=== PATIENT | male | born 1990 | race Asian ===

== ENCOUNTER 2023-04-29 18:10 | Observation (INO) ==
[2023-04-29 18:29] LABS: ABS Basophils 0.1 10^3/uL (0.0-0.1); ABS Eosinophils 0.1 10^3/uL (0.0-0.5); ABS Lymphocytes 2.7 10^3/uL (1.0-4.8); ABS Monocytes 0.9 10^3/uL (0.0-1.1); ABS Neutrophils 8.8 10^3/uL (1.5-7.6); ABS Nucleated RBC 0.01 10^3/ul; Eosinophil % 0.6 %; Lymphocyte % 21.9 %; Mean Corpuscular Hemoglobin 29.9 pg (27-33); Mean Corpuscular Hgb Conc 34.2 g/dL (31-36); Mean Corpuscular Volume 87.5 fL (80-97); Mean Platelet Volume 7.8 fL (7.5-11.2); Nucleated Red Blood Cells % 0.1 /100 WBC (0.0-0.4); Platelet Count 251 10^3/uL (150-450); Red Blood Count 5.37 10^6/uL (4.06-5.63); Red Cell Distribution Width 13.8 % (12-17); White Blood Count 12.5 10^3/uL (3.6-10.2)
[2023-04-29 18:34] LABS: INR 1.08 (0.88-1.18)
[2023-04-29 18:45] LABS: Albumin 4.4 g/dL (3.2-5.2); Albumin/Globulin Ratio 1.7 (1-3); Calcium 9.3 mg/dL (8.6-10.3); Creatinine, Serum 1.29 mg/dL (0.67-1.17); Globulin 2.6 g/dL (2-4); Potassium 4.2 mmol/L (3.5-5.0); Total Bilirubin 0.4 mg/dL (0.2-1.0)
[2023-04-29 19:54] LABS: High Sensitivity Troponin 1 Hr 173 pg/mL (<20)
[2023-04-29] MEDS ORDERED: Heparin DRIP 25,000 UNITS BAG 25,000 UNITS/500 ML BAG IV SCH (21:00)
[2023-04-29] MEDS: Heparin DRIP 25,000 UNITS BAG 25,000 UNITS/500 ML BAG IV SCH (21:33)
[2023-04-29 21:35] LABS: HDL Cholesterol 39.7 mg/dL
[2023-04-29] MEDS ORDERED: Heparin 5000 UNITS/ML 1 mL VIAL IV SCH (22:00)
[2023-04-29] MEDS: Lactated Ringers 1000 ml BAG 1,000 ML IV SCH (23:11)
[2023-04-30 03:50] LABS: ABS Eosinophils 0.1 10^3/uL (0.0-0.5); ABS Lymphocytes 3.8 10^3/uL (1.0-4.8); ABS Monocytes 0.7 10^3/uL (0.0-1.1); ABS Neutrophils 4.2 10^3/uL (1.5-7.6); ABS Nucleated RBC 0.01 10^3/ul; Eosinophil % 1.3 %; Hematocrit 44.9 % (38-53); Hemoglobin 15.4 g/dL (13.2-16.3); Lymphocyte % 42.4 %; Mean Corpuscular Hemoglobin 29.7 pg (27-33); Mean Corpuscular Hgb Conc 34.3 g/dL (31-36); Mean Corpuscular Volume 86.5 fL (80-97); Mean Platelet Volume 7.8 fL (7.5-11.2); Nucleated Red Blood Cells % 0.2 /100 WBC (0.0-0.4); Platelet Count 235 10^3/uL (150-450); Red Blood Count 5.19 10^6/uL (4.06-5.63); Red Cell Distribution Width 13.8 % (12-17); White Blood Count 8.9 10^3/uL (3.6-10.2)
[2023-04-30 04:05] LABS: Calcium 9.1 mg/dL (8.6-10.3); Creatinine, Serum 1.22 mg/dL (0.67-1.17); Potassium 4.1 mmol/L (3.5-5.0); eGFR CKD-EPI 81.3 (>60)
[2023-04-30] MEDS: Heparin DRIP 25,000 UNITS BAG 25,000 UNITS/500 ML BAG IV SCH (04:52)
[2023-04-30] MEDS: Lactated Ringers 1000 ml BAG 1,000 ML IV SCH (06:48)
[2023-04-30 10:01] LABS: High Sensitivity Troponin 3 Hr 146 pg/mL (<20)
[2023-04-30 10:41] LABS: C Reactive Protein 1.17 mg/L (<8.01)
[2023-04-30 11:09] LABS: Activated Partial Thrombo Time 74.7 seconds (26.0-38.0)
[2023-04-30 12:57] LABS: Erythrocyte Sed Rate 0 mm/Hr (0-14)
[2023-04-30 15:15] VITALS: BP 124/86
== END 2023-04-30 15:18 | disposition home or self-care (01) ==
LOC: EDHOLD 18:10 → ED 18:10 → SUATTDRO 20:52 → EDHOLD 04-30 15:17
PROVIDERS: ADMIT Student in an Organized Health Care Education/Training Program; ATTEND Internal Medicine